=== PATIENT | male | born 1955 ===

== ENCOUNTER 2016-12-11 08:52 | Day surgery (SDC) | payer OTHER ==
[2016-12-11] MEDS ORDERED: Lactated Ringer's 500 ML IV ONE (09:31)
[2016-12-11 09:45] VITALS: TEMP 97
[2016-12-11] MEDS ORDERED: Propofol 10 mg/ml Inj (20 ML) ONE (09:58)
[2016-12-11 10:29] VITALS: RESP 10
[2016-12-11 10:52] VITALS: BP 118/62; PULSE 54; O2SAT 100
== END 2016-12-11 11:06 | disposition home or self-care (01) ==
LOC: H.ENDO 08:52
PROVIDERS: ATTEND Internal Medicine Gastroenterology
DX: Z12.11 Encounter for screening for malignant neoplasm of colon (principal); E78.5 Hyperlipidemia, unspecified; K64.8 Other hemorrhoids